=== PATIENT | male | born 1975 ===

== ENCOUNTER 2021-03-19 15:58 | Emergency (ER) | payer OTHER ==
[~2021-03-19] VITALS: Ht 177.8 cm; Wt 57.2 kg
[2021-03-19] MEDS ORDERED: IV NORMAL SALINE 1000 ML BAG IV ONE (16:15)
[2021-03-19 16:33] LABS: HEMATOCRIT 42.7 % (36.7-47.1); MEAN CORPUSCULAR HEMOGLOBIN 34.1 uug (23.8-33.4); MEAN CORPUSCULAR VOLUME 99.8 fL (73.0-96.2); PLATELET COUNT (AUTO) 204 K/uL (152-348)
[2021-03-19 16:49] LABS: ALANINE AMINOTRANSFERASE 84 U/L (16-63); ALKALINE PHOSPHATASE 63 U/L (50-136); ASPARTATE AMINOTRANSFERASE 94 U/L (15-37); BILIRUBIN,DIRECT 0.1 mg/dL (0.0-0.2); BILIRUBIN,TOTAL 0.4 mg/dL (0.2-1.0); CARBON DIOXIDE 29 mmol/L (21-32); CHLORIDE 98 mmol/L (98-107); CREATININE 0.7 mg/dL (0.6-1.3); GLUCOSE 151 mg/dL (74-106); POTASSIUM 3.1 mmol/L (3.5-5.1); TOTAL PROTEIN, SERUM 7.7 g/dL (6.4-8.2); UREA NITROGEN, BLOOD 13 mg/dL (7-18)
--- NOTE | 2021-03-19 16:53 | NUR ---
Pt stable and sleeping. No acute distress at this time.
[2021-03-19 16:56] LABS: ACETAMINOPHEN < 2.0 ug/mL (10-30)
[2021-03-19 17:03] LABS: ETHANOL 448 MG/DL (0-0)
--- NOTE | 2021-03-19 17:10 | NUR ---
IV fluids complete.
--- NOTE | 2021-03-19 19:28 | NUR ---
pt opens eyes to strong verbal and tactile stimuli. No acute distress noted.
--- NOTE | 2021-03-19 22:14 | NUR ---
Pt able to stand with assist at bedside. Able to void. Oriented to name and time. Educated about reason for stay at ER. Able to verbalized understanding of plan of care at this time.
--- NOTE | 2021-03-19 22:53 | NUR ---
pt stood at side of bed with assist to urinate. pt steady on his feet.
[2021-03-20] MEDS ORDERED: CHLO25CA22 PO (02:57)
[2021-03-20] MEDS ORDERED: CHLORDIAZEPOXIDE HCL 25 MG CAPSULE PO ONE (03:00)
[2021-03-20] MEDS ORDERED: CHLORDIAZEPOXIDE HCL 5 MG CAPSULE ONE (04:00)
[2021-03-20] MEDS ORDERED: PROCHLORPERAZINE EDISYLATE 10 MG/2 ML VIAL IM ONE (04:00)
[2021-03-20] MEDS ORDERED: PROCHLORPERAZINE EDISYLATE 10 MG/2 ML VIAL ONE (04:08)
--- NOTE | 2021-03-20 04:18 | NUR ---
Informed patient of discharge and clearance per Dr. Cazares. Explained taxi voucher will be provided and taxi will be called for patient.
--- NOTE | 2021-03-20 04:46 | NUR ---
Called [facility] for patient pick-up. ETA of 1 hr. Patient made aware.
--- NOTE | 2021-03-20 05:58 | NUR ---
Called Taxi services states another 30 minutes to one hour.
--- NOTE | 2021-03-20 07:20 | NUR ---
Learning Designer assumes care: Patient is AOx4, seen walking with steady gait from ER bed 2B to bathroom. Patient is medically cleared to go home by Dr Cazares. i ride(provided by hospital) will arrive in about 20 minutes per report from previous KAILEE Barksdale & KAILEE Brandon. Patient ate 75% of his sandwich and iced juice. NAD.
--- NOTE | 2021-03-20 07:37 | NUR ---
Patient will wait in ER waiting room for the taxi.
--- NOTE | 2021-03-20 08:18 | NUR ---
Patient is resting comfortably on chair with a blanket on, NAD, still waiting for his taxi ride.
--- NOTE | 2021-03-20 08:51 | NUR ---
Patient ate hot breakfast with good appetite, still waiting for taxi ride.
== END 2021-03-20 09:05 | disposition home or self-care (01) ==
LOC: ER 15:58
DX: F10.129 Alcohol abuse with intoxication, unspecified (principal); Y90.8 Blood alcohol level of 240 mg/100 ml or more; E87.6 Hypokalemia; R74.01 Elevation of levels of liver transaminase levels
CPT/HCPCS: 80048; 80076; 80299; 80307; 80320; 85025; 93005; 96360; 96372; 99285; J0780; 36415; A4663; G0480; J7030; J8499